=== PATIENT | male | born 1995 | race Caucasian/White ===

== ENCOUNTER 2017-09-03 15:35 | Outpatient (CLI) | payer BC ==
--- NOTE | 2017-09-03 17:12 | MRI ---
MRI RIGHT ANKLE WITHOUT CONTRAST: HISTORY: 719.47, M25.571, ankle pain, evaluate for osteochondral defect. Chronic pain, worse with activities. COMPARISON: None. FINDINGS: LIGAMENTS: AITFL, PITFL, ATFL, and CFL are intact. The superficial and deep deltoid ligaments are n ormal. All three bands of the spring ligament are normal. Dorsal and plantar calcaneal cuboid ligaments are normal. TENDONS: No significant tenosynovitis. Extensor and flexor tendons are normal. No subluxation of t he peroneal tendons. BONES: No fracture. No malalignment. No osteochondral defect. SOFT TISSUES: The plantar fascia is normal. No significant edema. CARTILAGE: Normal. No defects. IMPRESSION: Normal examination of the ankle. No osteochondral defect. POS: C
== END 2017-09-03 15:36 | disposition home or self-care (01) ==
LOC: SCSMRI 15:35
PROVIDERS: ATTEND Orthopaedic Surgery
DX: M25.571 Pain in right ankle and joints of right foot (principal)